=== PATIENT | female | born 1995 | race Caucasian/White ===

== ENCOUNTER 2017-09-28 13:51 | Emergency (ER) | payer OTHER ==
[~2017-09-28] VITALS: Ht 165.1 cm; Wt 90.7 kg
--- NOTE | 2017-09-28 14:01 | ER Report ---
History and Physical Time Seen By MD: 14:01 HPI/MELYSSA CHIEF COMPLAINT: Vomiting, 15 weeks , influenza HISTORY OF PRESENT ILLNESS: 22-year-old female patient presents to emergency room with complaint of vomiting. Patient states she is currently 15 weeks and was recently diagnosed with influenza. She states she was seen by the [facility] yesterday, he received 2 L of normal saline. She states that she has had persistent vomiting since then. She states that this started around Tuesday when she was diagnosed with the flu. She denies having any diarrhea. She states that she is not been able to eat as she has been vomiting. She states that she has tried Phenergan at home. She states that has not really seemed to help. She states she's been able to take her Tamiflu as directed. REVIEW OF SYSTEMS: Respiratory: No cough, no dyspnea. Cardiovascular: No chest pain, no palpitations. Gastrointestinal: As noted above Musculoskeletal: No back pain. Allergies: Coded Allergies: No Known Drug Allergies (Unverified , 09/28/17) Home Meds Active Scripts Promethazine Hcl (PROMETHAZINE HCL) 25 Mg Supp.rect, 25 MG RC Q8H Y for NAUSEA/ VOMITING, #12 SUPP.RECT Prov:DOUGCHATA [facility] 09/28/17 Ondansetron (ZOFRAN ODT) 4 Mg Tab.rapdis, 4 MG PO Q6H Y for NAUSEA/VOMITING, # 20 TAB.ARASELI Prov:ENMANUEL CAMACHOE [facility] 09/28/17 Reported Medications Promethazine Hcl (PROMETHAZINE HCL) 25 Mg Tablet, 12.5 MG PO Q8H, TAB 09/28/17 Ondansetron Hcl (ZOFRAN) 4 Mg Tablet, 4 MG PO Q12H, TAB 09/28/17 Past Medical/Surgical History Patient has a past medical history of fractures. Patient has a surgical history of tubes in ears, tonsillectomy. Reviewed Nurses Notes: Yes Hx Smoking: No Constitutional Vital Sign - Last 24 Hours 09/28/17 09/28/17 09/28/17 09/28/17 13:59 14:00 14:06 14:21 Temp 97.7 Pulse 116 112 116 Resp 16 B/P (MAP) 132/78 (96) 132/78 Pulse Ox 97 97 97 O2 Delivery Room Air 1/24/18 09/28/17 09/28/17 09/28/17 14:36 14:51 14:56 15:00 Pulse 82 B/P (MAP) 110/56 (74) Pulse Ox 96 93 96 09/28/17 09/28/17 09/28/17 09/28/17 15:01 15:06 15:11 15:16 Pulse 73 86 81 82 Pulse Ox 93 98 97 97 09/28/17 09/28/17 09/28/17 09/28/17 15:21 15:26 15:30 15:31 Pulse 85 80 96 B/P (MAP) 89/67 (74) Pulse Ox 97 97 95 09/28/17 09/28/17 09/28/17 15:36 15:41 15:42 Pulse 83 84 B/P (MAP) 95/52 (66) Pulse Ox 97 97 Intake and Output 09/28/17 09/28/17 09/29/17 15:00 23:00 07:00 Intake Total 1000 ml Balance 1000 ml Physical Exam General Appearance: The patient is alert, has no immediate need for airway protection and no current signs of toxicity. Patient does feel warm to touch. ENT: Tympanic membranes are pearly-magdaleno, auditory canals are patent, mucous membranes are moist. Respiratory: Chest is non tender, lungs are clear to auscultation. Cardiac: regular rate and rhythm Gastrointestinal: Abdomen is soft and non tender, no masses, bowel sounds normal. Musculoskeletal: Neck: Neck is supple and non tender. Extremities have full range of motion and are non tender. Skin: No rashes or lesions. DIFFERENTIAL DIAGNOSIS: After history and physical exam differential diagnosis was considered for nausea and vomiting including but not limited to gastroenteritis, gastritis, appendicitis, and medication side effect. Medical Decision Making Data Points Result Diagram: 09/28/17 1434 09/28/17 1434 Laboratory Hematology Test 09/28/17 13:56 09/28/17 14:34 Urine Color Yellow Urine Clarity Cloudy Urine pH 7.0 pH (4.8-9.5) Urine Specific Herman 1.014 Urine Protein Negative mg/dL (NEGATIVE) Urine Glucose (UA) Negative mg/dL (NEGATIVE) Urine Ketones Trace mg/dL (NEGATIVE) Urine Blood Negative (NEGATIVE) Urine Nitrite Negative (NEGATIVE) Urine Bilirubin Negative (NEGATIVE) Urine Urobilinogen Negative mg/dL (0.2-1.9) Urine Leukocyte Esterase Negative (NEGATIVE) Urine RBC None /HPF (0-2/HPF) Urine WBC 1 /HPF (0-5/HPF) Urine Squamous Epithelial Cells Many /LPF (</=FEW) Urine Transitional Epithelial Cells Few /LPF (NONE-FEW) Urine Amorphous Crystals Few /HPF Urine Bacteria Few /HPF (NONE-FEW) Urine Mucus Few /HPF (NONE-FEW) Red Blood Count 5.08 M/uL (4.17-5.56) Mean Corpuscular Volume 83.3 fL (80.0-96.0) Mean Corpuscular Hemoglobin 29.1 pg (26.0-33.0) Mean Corpuscular Hemoglobin Concent 34.9 g/dL (32.0-36.0) Red Cell Distribution Width 13.4 % (11.5-14.5) Mean Platelet Volume 8.0 fL (7.2-11.1) Neutrophils (%) (Auto) 76.7 % (39.4-72.5) Lymphocytes (%) (Auto) 17.6 % (17.6-49.6) Monocytes (%) (Auto) 5.3 % (4.1-12.4) Eosinophils (%) (Auto) 0.1 % (0.4-6.7) Basophils (%) (Auto) 0.3 % (0.3-1.4) Nucleated RBC Relative Count (auto) 0.0 /100WBC Neutrophils # (Auto) 9.0 K/uL (2.0-7.4) Lymphocytes # (Auto) 2.1 K/uL (1.3-3.6) Monocytes # (Auto) 0.6 K/uL (0.3-1.0) Eosinophils # (Auto) 0.0 K/uL (0.0-0.5) Basophils # (Auto) 0.0 K/uL (0.0-0.1) Nucleated RBC Absolute Count (auto) 0.00 K/uL Sodium Level 136 mmol/L (137-145) Potassium Level 3.5 mmol/L (3.5-5.0) Chloride Level 103 mmol/L (98-107) Carbon Dioxide Level 21 mmol/L (22-31) Blood Urea Nitrogen 4 mg/dl (7-18) Creatinine 0.50 mg/dl (0.52-1.04) Glomerular Filtration Rate Calc > 60.0 Random Glucose 80 mg/dl (75-110) Calcium Level 9.5 mg/dl (8.4-10.2) Total Bilirubin 0.6 mg/dl (0.2-1.3) Aspartate Amino Transf (AST/SGOT) 19 U/L (0-35) Alanine Aminotransferase (ALT/SGPT) 33 U/L (0-56) Alkaline Phosphatase 68 U/L (0-126) Total Protein 7.4 gm/dl (6.3-8.2) Albumin 3.9 g/dl (3.5-5.0) Amylase Level 100 U/L (0-110) Lipase 48 U/L (23-300) Chemistry Test 09/28/17 13:56 09/28/17 14:34 Urine Color Yellow Urine Clarity Cloudy Urine pH 7.0 pH (4.8-9.5) Urine Specific Herman 1.014 Urine Protein Negative mg/dL (NEGATIVE) Urine Glucose (UA) Negative mg/dL (NEGATIVE) Urine Ketones Trace mg/dL (NEGATIVE) Urine Blood Negative (NEGATIVE) Urine Nitrite Negative (NEGATIVE) Urine Bilirubin Negative (NEGATIVE) Urine Urobilinogen Negative mg/dL (0.2-1.9) Urine Leukocyte Esterase Negative (NEGATIVE) Urine RBC None /HPF (0-2/HPF) Urine WBC 1 /HPF (0-5/HPF) Urine Squamous Epithelial Cells Many /LPF (</=FEW) Urine Transitional Epithelial Cells Few /LPF (NONE-FEW) Urine Amorphous Crystals Few /HPF Urine Bacteria Few /HPF (NONE-FEW) Urine Mucus Few /HPF (NONE-FEW) White Blood Count 11.8 k/uL (4.5-11.0) Red Blood Count 5.08 M/uL (4.17-5.56) Hemoglobin 14.8 g/dL (12.0-16.0) Hematocrit 42.4 % (34.0-47.0) Mean Corpuscular Volume 83.3 fL (80.0-96.0) Mean Corpuscular Hemoglobin 29.1 pg (26.0-33.0) Mean Corpuscular Hemoglobin Concent 34.9 g/dL (32.0-36.0) Red Cell Distribution Width 13.4 % (11.5-14.5) Platelet Count 284 K/uL (150-450) Mean Platelet Volume 8.0 fL (7.2-11.1) Neutrophils (%) (Auto) 76.7 % (39.4-72.5) Lymphocytes (%) (Auto) 17.6 % (17.6-49.6) Monocytes (%) (Auto) 5.3 % (4.1-12.4) Eosinophils (%) (Auto) 0.1 % (0.4-6.7) Basophils (%) (Auto) 0.3 % (0.3-1.4) Nucleated RBC Relative Count (auto) 0.0 /100WBC Neutrophils # (Auto) 9.0 K/uL (2.0-7.4) Lymphocytes # (Auto) 2.1 K/uL (1.3-3.6) Monocytes # (Auto) 0.6 K/uL (0.3-1.0) Eosinophils # (Auto) 0.0 K/uL (0.0-0.5) Basophils # (Auto) 0.0 K/uL (0.0-0.1) Nucleated RBC Absolute Count (auto) 0.00 K/uL Glomerular Filtration Rate Calc > 60.0 Calcium Level 9.5 mg/dl (8.4-10.2) Total Bilirubin 0.6 mg/dl (0.2-1.3) Aspartate Amino Transf (AST/SGOT) 19 U/L (0-35) Alanine Aminotransferase (ALT/SGPT) 33 U/L (0-56) Alkaline Phosphatase 68 U/L (0-126) Total Protein 7.4 gm/dl (6.3-8.2) Albumin 3.9 g/dl (3.5-5.0) Amylase Level 100 U/L (0-110) Lipase 48 U/L (23-300) Urinalysis Test 09/28/17 13:56 Urine Color Yellow Urine Clarity Cloudy Urine pH 7.0 pH (4.8-9.5) Urine Specific Herman 1.014 Urine Protein Negative mg/dL (NEGATIVE) Urine Glucose (UA) Negative mg/dL (NEGATIVE) Urine Ketones Trace mg/dL (NEGATIVE) Urine Blood Negative (NEGATIVE) Urine Nitrite Negative (NEGATIVE) Urine Bilirubin Negative (NEGATIVE) Urine Urobilinogen Negative mg/dL (0.2-1.9) Urine Leukocyte Esterase Negative (NEGATIVE) Urine RBC None /HPF (0-2/HPF) Urine WBC 1 /HPF (0-5/HPF) Urine Squamous Epithelial Cells Many /LPF (</=FEW) Urine Transitional Epithelial Cells Few /LPF (NONE-FEW) Urine Amorphous Crystals Few /HPF Urine Bacteria Few /HPF (NONE-FEW) Urine Mucus Few /HPF (NONE-FEW) ED Course/Re-evaluation ED Course Patient was admitted to the exam room, history and physical were obtained. Differential diagnoses were considered. On examination patient has no obvious tenderness, she did have one episode of emesis here in the emergency room. An IV was started, patient received 1 L of normal saline, 4 mg Zofran. A CBC, CMP, urinalysis were obtained. The labs were unremarkable, patient had trace ketones in her urine. On reexamination patient states she's feeling significantly improved. She she's not having any more nausea or vomiting. Patient feels like she is ready to go home. She states she does have oral Zofran and Phenergan at home. She does not have either the ODT or Phenergan suppositories. We will go ahead and prescribe her both those. She is to take those if she is unable to keep anything down orally. I discussed this with the patient and her family and they verbalized understanding and agreement. Decision to Disposition Date: Sep 28, 2017 Decision to Disposition Time: 15:40 Depart Departure Latest Vital Signs Vital Signs Date Time Temp Pulse Resp B/P (MAP) Pulse Ox O2 Delivery O2 Flow Rate FiO2 09/28/17 15:42 95/52 (66) 09/28/17 15:41 84 97 09/28/17 14:00 97.7 16 Room Air Impression: Primary Impression: Influenzal gastroenteritis Condition: Improved Disposition: HOME OR SELF-CARE Referrals: KARSTEN GOMEZ MD (PCP) New Scripts Promethazine Hcl (PROMETHAZINE HCL) 25 Mg Supp.rect 25 MG RC Q8H Y for NAUSEA/VOMITING, #12 SUPP.RECT Prov: CHATA CAMACHO 09/28/17 Ondansetron (ZOFRAN ODT) 4 Mg Tab.rapdis 4 MG PO Q6H Y for NAUSEA/VOMITING, #20 TAB.ARASELI Prov: CHATA CAMACHO 1/24/18 Patient Instructions: Clear Liquid Diet (ED), Gastroenteritis (ED) Additional Instructions: Increase fluid intake. Clear liquid diet for the next 24-48 hours. After that you may advance diet as tolerated starting with complex carbohydrates ; rice, bread or pasta. Follow up with your primary care provider in the next week. Return to the ER if condition worsens. CHATA CAMACHO Sep 28, 2017 14:01
[2017-09-28] MEDS ORDERED: PROM-110 PO (14:10)
[2017-09-28] MEDS ORDERED: ONDA4TAB97 PO (14:10)
[2017-09-28] MEDS ORDERED: NS(*) 0.9% 1000 ML BAG 1,000 ML IV ONE (14:23)
[2017-09-28] MEDS ORDERED: ONDANSETRON 4 MG/2 ML VIAL IVP ONE (14:25)
[2017-09-28 14:48] LABS: PLATELET COUNT, AUTOMATED 284 K/uL (150-450)
[2017-09-28] MEDS ORDERED: PROM25SU9 RC (15:40)
[2017-09-28] MEDS ORDERED: ONDA4TAB PO (15:40)
[2017-09-28 15:42] VITALS: BP 95/52
== END 2017-09-28 15:45 | disposition home or self-care (01) ==
LOC: ER 14:01
DX: O26.892 Other specified pregnancy related conditions, second trimester (principal); Z3A.15 15 weeks gestation of pregnancy; J11.2 Influenza due to unidentified influenza virus with gastrointestinal manifestations
CPT/HCPCS: 81001; 82150; 83690; 85025; 96361; 96374; 99284; J2405; J7030; 82040; 82247; 82310; 82374; 82435; 82565; 82947; 84075; 84132; 84155; 84295; 84450; 84460; 84520

== ENCOUNTER 2018-01-25 09:03 | Outpatient (RCR) | payer OTHER ==
[~2018-01-25] VITALS: Ht 165.1 cm; Wt 108.9 kg
[~2018-01-25 09:03] MED LIST: ONDA4TAB PO; ONDA4TAB97 PO; PROM-110 PO; PROM25SU9 RC
--- NOTE | 2018-01-25 14:23 | Medical Nutrition Therapy ---
Nutrition Anthropometrics Height (Inches): 65 Weight (Pounds): 240 (stated wt- 35 wks PG) Amari Nutrition Score: Amari Nutrition Risk Score: Dietary Referral Nutrition Risk Factors: Nutrition Risk Comment: Nutrition/Food History Breakfast: PB with honey/toast, grapes, bananas Lunch: sandwich, banana & grapes, reg popsyicle, sweet tea Dinner: pasta or potaote, steak, salad or burger and FF Snacks: sting cheese, banana, grapes Nutritional Education Nutrition Education Topic: Diabetic Nutrition Learning Readiness: Interested Teaching Methods: Discussion, Handout, Demonstration Response to Teaching: Verbalize understanding Teaching Recipient: Family Nutrition Counseling: Pt and mother attended session. Pt brought in several day meal intake. Intake was significant for higher CHO especially for breakfast with pt eating toast, honey, banana and grapes = ~95gm CHO. Discussed BG ranges for fasting and 2 hrs post meals. Pt has been checking BG with elevated BG noted after meals. Discussed glycemic repsonse to CHO and low vs high glycemic index foods. Enouraged pt to changes CHO to mostly low GI foods. Discussed changes in her diet to consume more low GI foods. Provided meal plan of 30gm CHO breakfast, 45gm CHO lunch and supper with 15-20gm PM and HS snack. Pt is to add protein and/or fat serving to all meals and snacks. Will f/u with phone call 01/31 and make another session if BG cont elevated. Nutrition Monitoring & Eval RD Patient Assessment Time: 60 minutes Nutritional Comment: Provided 70 minute diabetes education focusing on nutrition and BG monitoring. Copies To Copies to: VEENA WHITE MD, BETH January 25, 2018 14:22
--- NOTE | 2018-01-31 13:05 | Medical Nutrition Therapy ---
Nutritional Education Nutrition Education Topic: Diabetic Nutrition Learning Readiness: Interested Teaching Methods: Discussion Teaching Recipient: Patient Nutrition Counseling: Provided f/u phone calls. Pt has been checking BG 2 hrs after meals and have been ranging 80-90. Had one elevated BG after eating watermelon. Advised pt to avoid that food. Pt has been changing to lower GI CHO and limiting to 30-45gm/meal. Has added protein to breakfast meal. Encouraged pt to contact RD/CDE if she had further questions or concerns. Nutrition Monitoring & Eval RD Patient Assessment Time: 15 minutes (< 15 minutes) Nutritional Comment: Provided f/u phone call <15 minute diabetes education focusing on nutrition and BG monitoring. Copies To Copies to: VEENA WHITE MD, BETH January 31, 2018 13:05
== END 2018-02-01 13:19 | disposition home or self-care (01) ==
LOC: DIET 09:03
PROVIDERS: ATTEND Obstetrics & Gynecology
DX: Z71.3 Dietary counseling and surveillance (principal); O24.419 Gestational diabetes mellitus in pregnancy, unspecified control
CPT/HCPCS: G0108 ×2

== ENCOUNTER → 2018-03-13 | Outpatient (REF) | payer OTHER | LOC: ZZSENDIN 10:03 | PROVIDERS: ATTEND Obstetrics & Gynecology | DX: O42.90 Premature rupture of membranes, unspecified as to length of time between rupture and onset of labor, unspecified weeks of gestation (principal) | CPT/HCPCS: 84112 ==

== ENCOUNTER 2018-03-16 19:36 | Inpatient (IN) | payer OTHER ==
[~2018-03-16] VITALS: Ht 165.1 cm; Wt 110.2 kg
[~2018-03-16 19:36] MED LIST changes: +PENICILLIN G 2.5 MILLUN/100 ML 100 ML IVPB SCH
[2018-03-16] MEDS ORDERED: FAMOTIDINE(*) 20MG/50ML PREMIX 50 ML IVPB PRN (19:41)
[2018-03-16] MEDS ORDERED: TERBUTALINE SULF 1 MG/ML VIAL SUBQ PRN (19:45)
[2018-03-16] MEDS ORDERED: fentaNYL CITR 100 MCG/2 ML AMP IVP PRN (19:45)
[2018-03-16] MEDS ORDERED: LIDOCAINE 1% LOCAL 300 MG/30ML INJ PRN (19:45)
[2018-03-16] MEDS ORDERED: FLUSH 10 ML SYR IVP PRN (19:45)
[2018-03-16] MEDS ORDERED: METOCLOPRAMIDE 10 MG/2 ML SDV IVP PRN (19:45)
[2018-03-16] MEDS ORDERED: LIDOCAINE/SOD BICARB 8.4% SYR SC PRN (19:45)
[2018-03-16] MEDS ORDERED: DINOPROSTONE 10 MG INSERT PV ONE (20:34)
[2018-03-16 21:11] LABS: PLATELET COUNT, AUTOMATED 218 K/uL (150-450)
[2018-03-16] MEDS ORDERED: BUPIVACAINE 0.5% INJ 30ML VIAL EPI PRN (21:15)
[2018-03-16] MEDS ORDERED: ePHEDrine 25 MG/5 ML DISP.SYR IVP PRN (21:15)
[2018-03-16] MEDS ORDERED: LIDO/EPI 2% MPF 1:200,000 20ML EPI PRN (21:15)
[2018-03-16] MEDS ORDERED: fentaNYL CITR 100 MCG/2 ML AMP IT PRN (21:15)
[2018-03-16] MEDS ORDERED: LIDOCAINE/PF 2% 200MG/10ML AMP 200 MG/10 ML AMPUL EPI PRN (21:15)
[2018-03-16] MEDS ORDERED: FENTANYL/ROPIVACAINE 100 ML BAG EPI PRN (21:15)
[2018-03-16] MEDS ORDERED: BUPIVACAINE 0.25% MPF INJ EPI PRN (21:15)
[2018-03-16 23:45] VITALS: BP 135/62; Ht 165.1 cm; Wt 110.2 kg
[2018-03-17] MEDS ORDERED: EPIDURAL KEYS XX PRN
[2018-03-17] MEDS ORDERED: ZOLPIDEM TARTRATE 5 MG TAB PO PRN (00:05)
[2018-03-17] MEDS: LR(*) 1000 ML BAG 1,000 ML IV PRN ×2 (02:30→18:12)
[2018-03-17] MEDS ORDERED: PENICILLIN G 5 MILLUN/100 ML 100 ML IVPB ONE ×2 (07:00)
--- NOTE | 2018-03-17 07:29 | History & Physical ---
History of Present Illness Age of Patient: 23 : 1 Para or TPAL: 0 EDC per LMP: Mar 19, 2018 Estimated Gestational Age: 39.5 Chief Complaint GDM History of Present Illness The patient is a 23 year old 1 para 0000 admitted at 39 5/7 weeks estimated gestational age with an estimated date of delivery 11/17/17 . Patient is admitted with complaint of GDM. No vaginal bleeding. Good movement and occasional contractions. She was evaluated for active labor. She had course complicated by GDM and large fetus. Her record was reviewed. History Allergies: Coded Allergies: No Known Drug Allergies (Unverified , 09/28/17) Med Rec Home Meds Active Scripts Promethazine Hcl (PROMETHAZINE HCL) 25 Mg Supp.rect, 25 MG RC Q8H Y for NAUSEA/ VOMITING, #12 SUPP.RECT Prov:ENMANUEL CAMACHOE [facility] 09/28/17 Ondansetron (ZOFRAN ODT) 4 Mg Tab.rapdis, 4 MG PO Q6H Y for NAUSEA/VOMITING, # 20 TAB.ARASELI Prov:CHATA CAMACHO [facility] 09/28/17 Reported Medications Promethazine Hcl (PROMETHAZINE HCL) 25 Mg Tablet, 12.5 MG PO Q8H, TAB 09/28/17 Ondansetron Hcl (ZOFRAN) 4 Mg Tablet, 4 MG PO Q12H, TAB 09/28/17 Exam General Exam Vital Signs Vital Signs Date Time Temp Pulse Resp B/P (MAP) Pulse Ox O2 Delivery O2 Flow Rate FiO2 03/16/18 23:45 95 18 135/62 (86) 96 Room Air Cardiovascular: Regular Rate and Rhythm Respiratory: Clear to Auscultation Abdomen: Gravid - Non-Tender Extremities: No Edema Cervical Dialation: 1 (RN) Uterine Contractions(Q min): 7 Fetus Heart Tones: 120 Heart Tone Variabilty: Moderate FHT Category: I Medical Decision Making Data Points Result Diagram: 03/16/182055 Assessment and Plan Problems: (1) Gestational diabetes Assessment & Plan: DIET CONTROLLED NOW GDM WILL TRY CYTOTEC CERVADIL ALLOWED MINIMAL CHANGE OVERNIGHT Copies to: VEENA WHITE MD, JOHN MD Mar 17, 2018 07:29
[2018-03-17] MEDS ORDERED: MISOPROSTOL 25 MCG CAP PV PRN ×2 (10:55→15:00)
[2018-03-17] MEDS ORDERED: PENICILLIN G 2.5 MILLUN/100 ML 100 ML IVPB SCH (11:00)
[2018-03-17] MEDS ORDERED: MISOPROSTOL 25 MCG CAP ONE (11:05)
--- NOTE | 2018-03-17 11:17 | Labor Progress Note ---
Labor Subjective Progress Notes Subjective SLEEPING NOT FEELING CONTRACTIONS Labor Pain: Mild Labor Objective Vital Signs Vital Signs Date Time Temp Pulse Resp B/P (MAP) Pulse Ox O2 Delivery O2 Flow Rate FiO2 03/16/18 23:45 95 18 135/62 (86) 96 Room Air Cervical Dialation: 1 (RN) Uterine Contractions(Q min): 5 Fetus Heart Tones: 130 Heart Tone Variabilty: Moderate FHT Accelerations: 15X15 FHT Category: I Other Result Diagram: 03/16/182055 Assessment and Plan Problems: (1) Gestational diabetes Assessment & Plan: CERVADIL PULLED CYTOTEC JUST PLACED WILL MONITOR FOR CERVICAL CHANGE VEENA WHITE MD Mar 17, 2018 11:17
--- NOTE | 2018-03-17 14:55 | Labor Progress Note ---
Labor Subjective Progress Notes Subjective not feeling contractions Labor Pain: Comfortable Labor Objective Vital Signs Vital Signs Date Time Temp Pulse Resp B/P (MAP) Pulse Ox O2 Delivery O2 Flow Rate FiO2 03/16/18 23:45 95 18 135/62 (86) 96 Room Air Cervical Dialation: 1 Cervical Effacement (%): 50 Cervical Consistency: Soft Cervical Position: Mid Station: -2 Presentation: Vertex Uterine Contractions(Q min): 7 Uterine Contraction Strength: Mild Fetus Heart Tones: 130 Heart Tone Variabilty: Moderate FHT Accelerations: 15X15 FHT Category: I Other Result Diagram: 03/16/182055 Assessment and Plan Problems: (1) Gestational diabetes Assessment & Plan: minimal response form cytotec will monitor for change with placement of cytotec # 2 VEENA WHITE MD Mar 17, 2018 14:55
[2018-03-17] MEDS ORDERED: DLR(*) 1000 ML BAG 1,000 ML IV PRN (15:00)
--- NOTE | 2018-03-17 18:15 | Labor Progress Note ---
Labor Subjective Progress Notes Subjective CONTRACTIONS SPACING , NOT INTENSE Labor Pain: Mild Labor Objective Vital Signs Vital Signs Date Time Temp Pulse Resp B/P (MAP) Pulse Ox O2 Delivery O2 Flow Rate FiO2 03/16/18 23:45 95 18 135/62 (86) 96 Room Air Uterine Contractions(Q min): 5 Uterine Contraction Strength: Mild Fetus Heart Tones: 130 Heart Tone Variabilty: Moderate FHT Accelerations: 15X15 FHT Category: I Other Result Diagram: 03/16/182055 Assessment and Plan Problems: (1) Gestational diabetes Assessment & Plan: NOT PROGRESSING RAPIDLY, WILL ALLOW TO HAVE DINNER AND CONSIDER COOK BALLOON THIS EVENING VEENA WHITE MD Mar 17, 2018 18:15
[2018-03-17] MEDS ORDERED: OXYTOCIN 30 UNIT/D5LR 500 ML 500 ML IV PRN (22:31)
--- NOTE | 2018-03-17 22:31 | Labor Progress Note ---
Labor Subjective Progress Notes Subjective FEELING MORE PRESSURE AND CONTRACTIONS Labor Pain: Mild Labor Objective Vital Signs Vital Signs Date Time Temp Pulse Resp B/P (MAP) Pulse Ox O2 Delivery O2 Flow Rate FiO2 03/16/18 23:45 95 18 135/62 (86) 96 Room Air Cervical Dialation: 2 Cervical Effacement (%): 75 Cervical Consistency: Soft Cervical Position: Mid Station: 0 Presentation: Vertex Uterine Contractions(Q min): 4 Uterine Contraction Strength: Mild Fetus Heart Tones: 120 Heart Tone Variabilty: Moderate FHT Accelerations: 15X15 FHT Category: I Other Result Diagram: 03/16/182055 Assessment and Plan Problems: (1) Gestational diabetes Assessment & Plan: COOK BALLOON PLACED, WILL MONITOR FOR CHANGE VEENA WHITE MD Mar 17, 2018 22:31
[2018-03-18] VITALS (12 sets, daily range): BP systolic 96–136; BP diastolic 29–73
--- NOTE | 2018-03-18 00:01 | Anesthesia OB Pre-Anes Eval ---
History of Present Illness Anesthesia Start Date: Mar 17, 2018 Anesthesia Start Time: 23:10 OB Anesthesia Diagnosis: induction - medical Current Complication: diabetes, obesity EDC: Mar 19, 2018 : 1 Para: 0 Vital Signs: Vital Signs 03/16/18 23:45 Pulse 95 Resp 18 B/P (MAP) 135/62 (86) Pulse Ox 96 O2 Delivery Room Air Pain Ratin Heart Tones: 141 Result Diagram: 03/16/182055 Height (Inches): 65.00 Weight (Pounds): 243 BMI Calculated: 40.43 Past Medical History Medical History: diabetes Surgical History: other Previous Anesthesia: general Attended Childbirth Classes?: No Hx Anesthesia Reactions: No Hx Family Anesthesia Reaction: No Current Medications: pitocin Home Meds Active Scripts Promethazine Hcl (PROMETHAZINE HCL) 25 Mg Supp.rect, 25 MG RC Q8H Y for NAUSEA/ VOMITING, #12 SUPP.RECT Prov:CHATA CAMACHO [facility] 09/28/17 Ondansetron (ZOFRAN ODT) 4 Mg Tab.rapdis, 4 MG PO Q6H Y for NAUSEA/VOMITING, # 20 TAB.ARASELI Prov:CHATA CAMACHO [facility] 09/28/17 Reported Medications Promethazine Hcl (PROMETHAZINE HCL) 25 Mg Tablet, 12.5 MG PO Q8H, TAB 09/28/17 Ondansetron Hcl (ZOFRAN) 4 Mg Tablet, 4 MG PO Q12H, TAB 09/28/17 Allergies: Coded Allergies: No Known Drug Allergies (Unverified , 09/28/17) Anesthesia OB ROS Neurological: No migraines/headaches, No seizures, No neuropathy, No other ENT: Denies Tooth caps, Denies Loose teeth, Denies Chipped teeth, Denies Dentures, Denies Bridges, Denies Retainers, Denies Veneers, Denies Implants, Denies Tongue ring, Denies Other Pulmonary: No asthma, No smoker (pks/day/yrs), No other Airway Class: lll Cardiovascular ROS: No edema, No arrhythmia, No other Last Solids Date: Mar 18, 2018 Last Solids Time: 17:30 ROS: No Herpes, No STD(s), No Liver Disease, No Renal Disease, No Other Endocrine ROS: other (obese) Musculoskeletal ROS: No low back pain, No low back injury, No scoliosis, No other ASA Classification: 3 Assessment and Plan Anesthesia Plan: ALF ANAYA CRNA Mar 18, 2018 00:01
--- NOTE | 2018-03-18 00:03 | Procedure Note ---
Anesthetic Placement Note Anesthesia Plan: CSE Permit for Anesthesia Signed: Yes Anesthesia Technique: Patient Sitting Anesthesia Prep: Chlorhexidine Interspace: L 3-4 Local Anesthetic: 1% Lidocaine Amount Local - cc's: 3 Anesthesia Needle: 17g Touhy/Schliff Anesthesia Attempts: 1 Loss of Resistance: Normal Saline Depth of LEXIS (cm): 6.5 Epidural Needle Placement: No CSF, No Blood, No Parasthesia Intrathecal Needle: 27 Gauge Pencan Cerebral Spinal Fluid: Yes, Clear Catheter Insertion (cm): 5 Catheter Type: Vargas - Spring Wound Epidural Dressing: Tegaderm, Tape Anesthesia Tray: Lot Number ([id number]), Expiration Date (04/23), Reference Number ([id number]) Anesthesia Medications: Intrathecal Dose: mcg Fentanyl (10), mg Spinal Bupivicaine (2.5) Epidural Test Dose: 1.5 Lido/Epi (1:200,000), Dose - mL (3), Time (2330), Negative Epidural Infusion: 0.2% Ropivicaine, With Fentanyl 2mcg/ml, Start Time: (2344) Epidural Pump Setting: Bolus Dose - mL (6), Lockout - Minutes (20), Maintenance Rate - mL/hr (6), Maximum per Hour - mL (24) Complications: None ALF PRADHAN CRNA Mar 18, 2018 00:03
[2018-03-18] MEDS: LR(*) 1000 ML BAG 1,000 ML IV PRN ×2 (00:14→11:42)
[2018-03-18] MEDS ORDERED: PENICILLIN G 5 MILLUN/100 ML 100 ML ONE (05:03)
--- NOTE | 2018-03-18 08:25 | Labor Progress Note ---
Labor Subjective Progress Notes Subjective comfortable with epidural Labor Pain: Comfortable Labor Objective Vital Signs Vital Signs Date Time Temp Pulse Resp B/P (MAP) Pulse Ox O2 Delivery O2 Flow Rate FiO2 03/16/18 23:45 95 18 135/62 (86) 96 Room Air Cervical Dialation: 5 Cervical Effacement (%): 95 Cervical Consistency: Soft Cervical Position: Anterior Station: 0 Presentation: Vertex Uterine Contractions(Q min): 3 Uterine Contraction Strength: Strong Fetus Heart Tones: 129 Heart Tone Variabilty: Moderate FHT Accelerations: 15X15 FHT Category: I Other Result Diagram: 03/16/182055 Assessment and Plan Problems: (1) Gestational diabetes (2) Active labor at term Assessment & Plan: cook ballon out, arom clear fluid will monitor for change, on 18 mu of pitocin. Discussed possible c section if doesn't progress VEENA WHITE MD Mar 18, 2018 08:24
[2018-03-18] MEDS ORDERED: PENICILLIN G 2.5 MILLUN/100 ML 100 ML IVPB SCH (09:00)
[2018-03-18] MEDS ORDERED: ONDANSETRON 4 MG/2 ML VIAL IVP PRN (09:45)
[2018-03-18] MEDS ORDERED: MORPHINE PF 5 MG/10 ML AMP ONE (11:18)
[2018-03-18] MEDS ORDERED: fentaNYL CITR 100 MCG/2 ML AMP ONE ×2 (11:18→12:22)
[2018-03-18] MEDS ORDERED: OXYTOCIN 10 UNIT/ML SDV ONE (11:18)
[2018-03-18] MEDS ORDERED: KETOROLAC 30 MG/ML VIAL ONE (11:19)
[2018-03-18] MEDS ORDERED: LIDO/EPI 2% MPF 1:200,000 20ML ONE (11:19)
[2018-03-18] MEDS ORDERED: NS 0.45% ONE (11:24)
[2018-03-18] MEDS ORDERED: NS(*) 0.9% 1000 ML BAG 0 ML ONE (11:25)
--- NOTE | 2018-03-18 11:29 | Labor Progress Note ---
Labor Subjective Progress Notes Subjective FEELING COMFORTABLE WITH EPIDURAL Vaginal Discharge/Fluid: Clear Fluid Labor Pain: Comfortable Labor Objective Vital Signs Vital Signs Date Time Temp Pulse Resp B/P (MAP) Pulse Ox O2 Delivery O2 Flow Rate FiO2 03/16/18 23:45 95 18 135/62 (86) 96 Room Air Cervical Dialation: 6 Cervical Effacement (%): 90 Station: 0 Uterine Contractions(Q min): 3 Uterine Contraction Strength: Strong Fetus Heart Tones: 130 Heart Tone Variabilty: Moderate FHT Decelerations: Variable FHT Category: II Other Result Diagram: 03/16/182055 Assessment and Plan Problems: (1) Gestational diabetes (2) Active labor at term Assessment & Plan: NO CHANGE IN CERVIX OVER PAST 2 HOURS, KNOWN LARGE BABY. WILL PROCEED WITH [facility] VEENA WHITE MD Mar 18, 2018 11:29
[2018-03-18] MEDS ORDERED: cefOXitin/DEX(*) 2GM/50ML PREM 50 ML IVPB ONE (11:34)
[2018-03-18] MEDS ORDERED: CITRIC ACID/SOD CITRATE 30 ML ONE (11:34)
[2018-03-18] MEDS ORDERED: BUPIVACAINE 0.5% INJ 30ML VIAL ONE (12:02)
[2018-03-18] MEDS ORDERED: PROPOFOL EMUL(*) 10MG/ML 20 ML 20 ML ONE (12:23)
[2018-03-18] MEDS ORDERED: MISOPROSTOL 200 MCG TAB ONE (12:39)
[2018-03-18] MEDS ORDERED: OXYTOCIN 30 UNIT/D5LR 500 ML 500 ML IV PRN (13:32)
[2018-03-18] MEDS ORDERED: FAMOTIDINE(*) 20MG/50ML PREMIX 50 ML IVPB PRN (13:32)
[2018-03-18] MEDS ORDERED: INFLUENZA VIRUS VAC 0.5 ML SYR IM ONE (13:35)
[2018-03-18] MEDS ORDERED: HYDROmorphone HCL 2 MG TAB PO PRN (13:35)
[2018-03-18] MEDS ORDERED: METOCLOPRAMIDE 10 MG/2 ML SDV IV PRN (13:35)
[2018-03-18] MEDS ORDERED: PROMETHAZINE 25 MG/ML 1 ML AMP IVP PRN (13:35)
[2018-03-18] MEDS ORDERED: LANOLIN OINT 7 GM TUBE TP PRN (13:35)
[2018-03-18] MEDS ORDERED: ONDANSETRON 4 MG/2 ML VIAL IV PRN (13:35)
[2018-03-18] MEDS ORDERED: FLUSH 10 ML SYR IVP PRN (13:35)
--- NOTE | 2018-03-18 13:45 | Anesthesia Progress Note ---
Progress/Maintenance Anesthesia Note Date: Mar 18, 2018 Anesthesia Note Time: 10:00 Pain Intensity: 0 Pump: On Pump Rate (ML/HR): 6 Motor Level: Bending Knees-Bilateral Dilatation: 6 Position: Left ALF PRADHAN CRNA Mar 18, 2018 13:45
--- NOTE | 2018-03-18 13:46 | Anesthesia Progress Note ---
Progress/Maintenance Anesthesia Note Date: Mar 18, 2018 Anesthesia Note Time: 11:58 Pain Intensity: 0 Pump: Off Motor Level: Bending Knees-Bilateral Dilatation: 6 Anesthesia Treatment: Lido 2%w/epi 5 cc . to Or for C/S Assessment and Plan Anesthesia Plan: CSE Anesthesia Stop Day: Mar 18, 2018 Anesthesia Stop Time: 13:35 ALF PRADHAN CRNA Mar 18, 2018 13:46
--- NOTE | 2018-03-18 13:47 | Post Operative Note ---
Operative Note - NETWORK SYSTEMS ANALYST Operative Day Date: Mar 18, 2018 Time: 12:58 Physicians Surgeon: CHRISTOPHER Reefer Truck Driver: MORGAN MONTES Anesthesia: CAROLYNN SCOTT Diagnosis Pre-Op Diagnosis: IUP AT 39 6/7 GDM FTP FOR CPD OBESITY Post-Op Diagnosis: SAME UTERINE ATONY Procedure Findings: MALE APGARS 8, 9 WT. 3875.4 GMS 8# 8.7 OZ NORMAL OVARIES BILATERAL ATONIC UTERUS 611502 Procedure(s): PLTCS Complications: 0 Fluids Fluids: 1100 CC LR IV 300 CC UOP Estimated Blood Loss: 800 CC Dictated Date OP Note Dictated: Mar 18, 2018 Time OP Note Dictated: 13:55 Copies to: VEENA WHITE MD, JOHN MD Mar 18, 2018 13:47
[2018-03-18] MEDS ORDERED: ACETAMINOPHEN(*)1000 MG/100 ML 100 ML IVPB SCH (14:15)
--- NOTE | 2018-03-18 16:11 | OPERATIVE REPORT 1 ---
EVENT DATE: March 18, 2018 SURGEON: Jesus Malik MD ANESTHESIA: Spinal, Xuan Booth CRNA GROUND WATER PUMP INSTALLER: SIMON Espana PREOPERATIVE DIAGNOSES 1. Intrauterine at 39-6/7 weeks. 2. Gestational diabetes. 3. Failure to progress. 4. Cephalopelvic disproportion. 5. Obesity. POSTOPERATIVE DIAGNOSES 1. Intrauterine at 39-6/7 weeks. 2. Gestational diabetes. 3. Failure to progress. 4. Cephalopelvic disproportion. 5. Obesity. 6. Uterine atony. PROCEDURE PERFORMED Primary low transverse section. COMPLICATIONS None. FLUIDS Lactated Ringer's 1100 mL IV. URINE OUTPUT 300 mL ESTIMATED BLOOD LOSS 800 mL INDICATIONS The patient is a 23-year-old female admitted for induction of labor for gestational diabetes. She was given Cervidil on the evening of the , made very little progress. Two rounds of Cytotec were placed without success. By the evening of the , a Cook balloon catheter was placed intracervically. She was 2 cm at that time and was started on Pitocin. By the morning of the , she was 5 cm, later changed to 6 by 9:00. By 11:30, she had made no change and no descent in spite of adequate uterine contractions. At that point , it was decided to proceed with primary . FINDINGS Male with Apgars 8 at one minute, 9 at five minutes. Weight was 3875.4 g , weighing 8 pounds 8.7 ounces. Normal uterus, ovaries, and tubes. She had an atonic uterus. It was noted that the 's vertex was not flexed normally into the pelvis with molding on the front instead of the back of the head. DESCRIPTION OF PROCEDURE After informed consent was obtained, the patient was taken to the OR with IV running, placed in the supine position with a leftward tilt, prepped and draped in the usual fashion. A Nye catheter was already indwelling, and IVs were running. Once she was prepped and draped, a Pfannenstiel skin incision was made , carried through to the underlying layer fascia with the Bovie. Fascia was nicked in the midline, extended laterally with Britt scissors. The rectus fascia was dissected off the rectus muscles with both blunt and sharp dissection in the superior, then inferior aspect of the incision. Rectus muscles were divided in the midline and the peritoneum entered sharply with Metzenbaum scissors. The peritoneal incision was extended superiorly and inferiorly with good visualization of the bladder. The bladder blade was placed. Bladder flap created with Metzenbaum scissors. Bladder blade was then replaced. A low transverse uterine incision made with a scalpel and extended laterally with digital technique by the reactor service operator. The 's vertex was then delivered through the uterine incision. The oropharynx and nasopharynx were bulb suctioned, and the remainder of the infant delivered with ease. Again, the oropharynx and nasopharynx were bulb suctioned. The infant was dried and noted to have spontaneous cry and spontaneous movement of all four extremities. Cord was clamped times two and cut and handed to Dr. Belle, who is the monotype setter in attendance for delivery. Cord blood was obtained. The placenta delivered intact. The uterus was exteriorized and was cleared of all clot and debris. Pitocin 40 units was run through the IV bag to help firm the uterus. The uterine incision was closed with 0 Vicryl in a running locked fashion. A second imbricating layer of 0 Vicryl was used. The posterior cul-de -sac was copiously irrigated, and the uterus was noted to be becoming atonic. It was massaged. Methergine 0.2 was given IM, and with doctor massage, it appeared to be improving. Uterus was then returned to the abdominal cavity. Left and right pericolic gutters were cleared of all clot and debris. Uterine incision was once again inspected and noted to be hemostatic. The peritoneum and rectus muscles were approximated with 3-0 Vicryl Plus in a running fashion. Subfascial compartment was inspected, and any bleeding became hemostatic with the Bovie. Irrigation was performed. Fascia was closed with 4-0 Vicryl in a running fashion. Subcutaneous space was irrigated and any bleeding made hemostatic with the Bovie. The subcutaneous spaces had been irrigated. Subcutaneous space was approximated with 3-0 Vicryl Plus in a running fashion. Skin was closed with jeanette. The uterus was expressed of approximately 100 mL of blood and clot. Cytotec 800 mcg was placed per rectum. The wound was dressed. Patient was taken to the recovery room in stable condition. [facility]
[2018-03-18] MEDS: ACETAMINOPHEN(*)1000 MG/100 ML 100 ML IVPB SCH (16:34)
[2018-03-18] MEDS: DLR(*) 1000 ML BAG 1,000 ML IV PRN ×2 (16:35→16:39)
[2018-03-18] MEDS: SIMETHICONE 80 MG CHEW CHEW SCH ×2 (18:05→21:10)
[2018-03-18] MEDS: KETOROLAC 30 MG/ML VIAL IVP SCH (18:05)
[2018-03-18] MEDS: FAMOTIDINE 20 MG TAB PO SCH (21:10)
[2018-03-18] MEDS: DOCUSATE CALCIUM 240 MG CAP PO SCH (21:10)
[2018-03-19 01:00] VITALS: BP 111/69
[2018-03-19] MEDS: KETOROLAC 30 MG/ML VIAL IVP SCH ×2 (02:00→07:14)
[2018-03-19] MEDS: ACETAMINOPHEN(*)1000 MG/100 ML 100 ML IVPB SCH (02:00)
[2018-03-19 06:07] LABS: PLATELET COUNT, AUTOMATED 185 K/uL (150-450)
[2018-03-19] MEDS: ENOXAPARIN 100 MG/ML SYR SC SCH ×2 (06:30→18:00)
[2018-03-19 07:28] VITALS: BP 108/65
[2018-03-19] MEDS: SIMETHICONE 80 MG CHEW CHEW SCH ×4 (08:21→21:21)
[2018-03-19] MEDS: DOCUSATE CALCIUM 240 MG CAP PO SCH ×2 (08:22→21:22)
[2018-03-19] MEDS: FAMOTIDINE 20 MG TAB PO SCH ×2 (08:22→21:22)
--- NOTE | 2018-03-19 10:04 | OB/GYN Progress Note ---
OB Subjective Progress Notes Subjective Pain controlled, Tolerating diet and activity. Baby . Normal lochia. 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 Baby . Normal lochia. VEENA WHITE MD Mar 19, 2018 10:04
[2018-03-19] MEDS ORDERED: HYDR2TAB4 PO (10:24)
[2018-03-19] MEDS ORDERED: DOCU240C67 PO (10:24)
[2018-03-19] MEDS ORDERED: IBUP800T37 PO (10:24)
[2018-03-19] MEDS ORDERED: FERR-41 PO (10:24)
--- NOTE | 2018-03-19 10:27 | OB/GYN Discharge Summary ---
Discharge Summary Reason for Hosp/Final Diag: (1) Gestational diabetes Status: Resolved (2) Active labor at term Status: Resolved (3) care following delivery Hospital Course & Plan: IOL FOR GDM, DID NOT PROGRESS PAST 6 CM, PLTCS WITHOUT COMPLICATIONS, DECLINED LOVENOX POSTOP FOR BMI, UNDERSTOOD RISKS OF DVT AND PE. ON POD 2, Pain controlled, Tolerating diet and activity. Baby . Normal lochia. Lates Vital Signs Vital Signs Date Time Temp Pulse Resp B/P (MAP) Pulse Ox O2 Delivery O2 Flow Rate FiO2 03/19/18 07:46 Room Air 03/19/18 07:28 98.1 79 14 108/65 (79) 95 03/18/18 17:45 2.0 Weight (Pounds): 243 Result Diagram: 03/19/18523 Condition: Improved Discharge: Home, Self Intermediate Meds Active Scripts Ibuprofen (IBUPROFEN) 800 Mg Tablet, 1 TAB PO Q8H, #30 TAB 0 Refills Take with food every 8 hours. Prov:VEENA MALIK MD 03/19/18 Hydromorphone Hcl (HYDROMORPHONE HCL) 2 Mg Tablet, 2-4 MG PO Q4H for PAIN, #20 TAB 0 Refills Prov:VEENA MALIK MD 03/19/18 Ferrous Sulfate (FERROUS SULFATE) 325 Mg Tablet.dr, 1 TAB PO BID, #60 TAB 0 Refills Prov:VEENA MALIK MD 03/19/18 Docusate Calcium (DOCUSATE CALCIUM) 240 Mg Capsule, 1 CAP PO BID, #30 CAPSULE 0 Refills Prov:VEENA MALIK MD 03/19/18 Promethazine Hcl (PROMETHAZINE HCL) 25 Mg Supp.rect, 25 MG RC Q8H Y for NAUSEA/ VOMITING, #12 SUPP.RECT Prov:CHATA CAMACHO 09/28/17 Ondansetron (ZOFRAN ODT) 4 Mg Tab.rapdis, 4 MG PO Q6H Y for NAUSEA/VOMITING, # 20 TAB.ARASELI Prov:CHATA CAMACHO [facility] 09/28/17 Reported Medications Promethazine Hcl (PROMETHAZINE HCL) 25 Mg Tablet, 12.5 MG PO Q8H, TAB 09/28/17 Ondansetron Hcl (ZOFRAN) 4 Mg Tablet, 4 MG PO Q12H, TAB 09/28/17 Follow up with: Dr. Malik [phone] Follow up in: 6 wks PP or PO, 2 wks PO Discharge Diet: As Tolerates Discharge Activity: Pelvic Rest Copies to: VEENA MALIK MD, JOHN MD Mar 19, 2018 10:27
[2018-03-19] MEDS ORDERED: IBUPROFEN 800 MG TAB PO SCH (12:00)
[2018-03-19 12:53] VITALS: BP 117/71
[2018-03-19] MEDS: DLR(*) 1000 ML BAG 1,000 ML IV PRN (13:08)
[2018-03-19] MEDS: IBUPROFEN 800 MG TAB PO SCH (13:48)
--- NOTE | 2018-03-19 14:35 | Anesthesia Post Eval Note ---
Anesthesia Post Eval Note Vital Signs 03/18/18 03/19/18 17:45 12:53 Temp 98.1 Pulse 79 Resp 18 B/P (MAP) 117/71 (86) Pulse Ox 96 O2 Delivery Room Air O2 Flow Rate 2.0 Pt able to participate in Eval: Yes Cardiovascular Status: Satisfactory Respiratory Status: Satisfactory Pain Managment: Satisfactory PO Nausea/Vomiting: Satisfactory Temperature Management: Satisfactory Mental Status: Satisfactory, Alert, Oriented X3 Post-Op Hydration Status: Satisfactory, Tolerating PO Well, Voiding w/o Difficulty Anesthesia Type: ALF ANAYA CRNA Mar 19, 2018 14:35
[2018-03-19 16:32] VITALS: BP 115/61
[2018-03-19 20:05] VITALS: BP 128/60
[2018-03-20 00:50] VITALS: BP 125/72
[2018-03-20] MEDS: IBUPROFEN 800 MG TAB PO SCH ×2 (01:56→08:31)
[2018-03-20 04:00] VITALS: BP 126/72
[2018-03-20] MEDS: ENOXAPARIN 100 MG/ML SYR SC SCH (05:33)
[2018-03-20 07:45] VITALS: BP 133/80
--- NOTE | 2018-03-20 08:20 | OB/GYN Progress Note ---
OB Subjective Progress Notes Subjective Pain controlled, Tolerating diet and activity. Baby . Normal lochia. 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 Baby . Normal lochia. VEENA WHITE MD Mar 20, 2018 08:19
[2018-03-20] MEDS: SIMETHICONE 80 MG CHEW CHEW SCH (08:30)
[2018-03-20] MEDS: FAMOTIDINE 20 MG TAB PO SCH (08:31)
[2018-03-20] MEDS: DOCUSATE CALCIUM 240 MG CAP PO SCH (08:31)
== END 2018-03-20 13:48 | disposition home or self-care (01) | DRG 765 ==
LOC: OB 19:36
PROVIDERS: ADMIT Student in an Organized Health Care Education/Training Program; ATTEND Student in an Organized Health Care Education/Training Program
PROC: 3E0P7GC Introduction of Other Therapeutic Substance into Female Reproductive, Via Natural or Artificial Opening (ICD-10-PCS; 2018-03-17)
PROC: 0U7C7ZZ Dilation of Cervix, Via Natural or Artificial Opening (ICD-10-PCS; 2018-03-17)
PROC: 10907ZC Drainage of Amniotic Fluid, Therapeutic from Products of Conception, Via Natural or Artificial Opening (ICD-10-PCS; 2018-03-18)
PROC: 10D00Z1 Extraction of Products of Conception, Low, Open Approach (ICD-10-PCS; principal; 2018-03-18 12:15)
DX: O24.420 Gestational diabetes mellitus in childbirth, diet controlled (principal); Z68.41 Body mass index [BMI] 40.0-44.9, adult; Z37.0 Single live birth; Z3A.39 39 weeks gestation of pregnancy; O62.1 Secondary uterine inertia; O65.4 Obstructed labor due to fetopelvic disproportion, unspecified; Z87.891 Personal history of nicotine dependence; E66.9 Obesity, unspecified; O99.214 Obesity complicating childbirth; O62.2 Other uterine inertia
CPT/HCPCS: 36415; 36416; 82948; 85025; 86850; 86900; 86901; 88307; C1726; J0131; J0694; J1885; J2270; J2405; J2540; J2590; J2704; J2765; J3010; J3490; J7120; S0020

== ENCOUNTER → 2018-06-27 | Outpatient (CLI) | payer OTHER, MEDICAID ==
[2018-03-16 23:45] VITALS: BMI 40.4
[~2018-06-27] MED LIST changes: +DOCU240C67 PO; +FERR-41 PO; +HYDR2TAB4 PO; +IBUP800T37 PO; +LEVO1IUD2 IY; -PENICILLIN G 2.5 MILLUN/100 ML 100 ML IVPB SCH; +SERT-1 PO
== END ==
LOC: LAB 13:29
PROVIDERS: ATTEND Student in an Organized Health Care Education/Training Program
DX: R45.4 Irritability and anger (principal)
CPT/HCPCS: 36415; 84443

== ENCOUNTER → 2018-11-26 | Outpatient (REF) | payer OTHER ==
[2018-03-16 23:45] VITALS: BMI 40.4
[~2018-11-26] MED LIST changes: +BUPR-472 PO; +BUPR-474 PO; -LEVO1IUD2 IY; +LEVO1IUD3 IY
== END ==
LOC: ZZSTITCHES 16:39
PROVIDERS: ATTEND Physician Assistant
DX: R19.7 Diarrhea, unspecified (principal); R11.2 Nausea with vomiting, unspecified
CPT/HCPCS: 87045; 87324; 87449